=== PATIENT | female | born 1970 | race Caucasian/White ===

== ENCOUNTER 2021-01-06 12:30 | Emergency (ER) | payer OTHER ==
[2021-01-06 12:51] VITALS: BP 111/73; PULSE 101; TEMP 98.9; BMI 28.3
[2021-01-06] MEDS ORDERED: ACETAMINOPHEN 1000 MG/100 ML VIAL IVPB ONE (12:58)
[2021-01-06] MEDS ORDERED: ACETAMINOPHEN INJECTION 100 ML IVPB ONE (13:00)
[2021-01-06 13:31] LABS: ALBUMIN 4.6 g/dl (3.4-5.0); BILIRUBIN,TOTAL 0.6 mg/dl (0.2-1); CALCIUM 9.7 mg/dl (8.5-10); CREATININE 0.5 mg/dl (0.55-1.3); TOT PROT 7.7 g/dl (6.4-8.2)
[2021-01-06 13:33] LABS: BASO % 1.6 % (0-2.0); EOS % 0.2 % (0-4.5); HEMATOCRIT 37.7 % (32.4-45.2); HEMOGLOBIN 12.6 GM/dl (10.7-15.3); LYMPH % 4.8 % (8-40); MCH 29.6 pg (25.7-33.7); MCHC 33.5 g/dl (32.0-36.0); MEAN CELL VOLUME 88.2 fl (80-96); MONO % 6.5 % (3.8-10.2); NEUT % 86.9 % (42.8-82.8); PLATELET COUNT 306 10^3/uL (134-434); RBC 4.28 M/mm3 (3.60-5.2); RDW 12.2 % (11.6-15.6); WHITE BLOOD COUNT 11.9 K/mm3 (4.0-10.8)
[2021-01-06] MEDS ORDERED: SODIUM CHLORIDE 0.9% 500 ML INFUS.BAG IV ONE (13:35)
[2021-01-06] MEDS ORDERED: FAMOTIDINE 10 MG TABLET PO ONE (15:16)
[2021-01-06] MEDS ORDERED: LIDOCAINE VISCOUS 2% ORAL/TOP 15 ML UNIT-DOSE CUP MM ONE (15:16)
[2021-01-06] MEDS ORDERED: MAG HYDROX/AL HYDROX/SIMETH 30 ML UNIT-DOSE CUP PO ONE (15:16)
[2021-01-06] MEDS ORDERED: metroNIDAZOLE 500 MG TABLET PO ONE (15:21)
[2021-01-06] MEDS ORDERED: metroNIDAZOLE 250 MG TABLET ONE (15:23)
[2021-01-06] MEDS ORDERED: FAMOTIDINE 20 MG TABLET ONE (15:23)
[2021-01-06] MEDS ORDERED: LIDOCAINE VISCOUS 2% ORAL/TOP 15 ML UNIT-DOSE CUP ONE (15:24)
[2021-01-06] MEDS ORDERED: MAG HYDROX/AL HYDROX/SIMETH 30 ML UNIT-DOSE CUP ONE (15:24)
== END 2021-01-06 15:59 | disposition home or self-care (01) ==
LOC: FER 12:30
PROC: 3E0333Z Introduction of Anti-inflammatory into Peripheral Vein, Percutaneous Approach (ICD-10-PCS; principal; 2021-01-06)
DX: K57.92 Diverticulitis of intestine, part unspecified, without perforation or abscess without bleeding (principal)
CPT/HCPCS: 36415; 74177-TC; 80053; 81003; 83690; 84703; 85025; 87086; 96374; 99285-25; J0131; Q9967

== ENCOUNTER 2021-03-20 04:39 | Day surgery (SDC) | payer OTHER ==
[2021-03-18 12:31] VITALS: BMI 29.2
[2021-03-20 10:05] VITALS: TEMP 97.7
[2021-03-20 10:42] VITALS: BP 112/68; PULSE 61
== END 2021-03-20 11:06 | disposition home or self-care (01) ==
LOC: JASU-ENDO 04:39
PROVIDERS: ATTEND Internal Medicine Gastroenterology
PROC: 0DJD8ZZ Inspection of Lower Intestinal Tract, Via Natural or Artificial Opening Endoscopic (ICD-10-PCS; principal; 2021-03-20 09:45)
DX: Z12.11 Encounter for screening for malignant neoplasm of colon (principal); K57.30 Diverticulosis of large intestine without perforation or abscess without bleeding